=== PATIENT | female | born 1995 | race African-American/Black ===

== ENCOUNTER 2017-02-24 10:11 | Emergency (ER) | payer OTHER ==
[~2017-02-24] VITALS: Ht 154.9 cm; Wt 45.4 kg
[2017-02-24 10:55] LABS: ABSOLUTE LYMPHOCYTES 2.1 thou/uL (0.8-5.3); MCHC 32.2 g/dL (28.0-37.0)
[2017-02-24 10:57] LABS: ABSOLUTE MONOCYTES 0.4 thou/uL (0.0-1.2); ABSOLUTE NEUTROPHILS 4.1 thou/uL (1.6-8.1); BASOPHILS 0.5 %; EOSINOPHILS 0.7 %; HEMATOCRIT 36.5 % (37.0-47.0); HEMOGLOBIN 11.7 gm/dL (12.0-15.0); LYMPHOCYTES 30.9 %; MCV 83.7 fL (80.0-100.0); NUCLEATED RBCS 0 /100WBC; POLYS 61.9 %; RBC 4.35 mil/uL (4.20-5.00); RDW-CV 14.1 % (10.5-14.5); WBC 6.7 thou/uL (4.0-11.0)
[2017-02-24 11:02] LABS: CALCIUM 8.9 mg/dL (8.5-10.1); CREATININE 0.7 mg/dL (0.6-1.3); POTASSIUM 3.8 mmol/L (3.5-5.1)
[2017-02-24 11:06] LABS: ALBUMIN 3.7 g/dL (3.4-5.0); TOTAL BILIRUBIN 0.3 mg/dL (<0.1-1.0); TOTAL PROTEIN 7.2 g/dL (6.4-8.2)
[2017-02-24 11:14] LABS: PLATELET COUNT* 172 thou/uL (150-400)
[2017-02-24 12:05] LABS: MPV 10.2 fl. (7.2-11.1)
[2017-02-24 12:39] LABS: URINE BILIRUBIN NEGATIVE (Negative); URINE BLOOD 3+ (Negative); URINE CLARITY CLEAR; URINE COLOR YELLOW; URINE GLUCOSE-RANDOM NEGATIVE (Negative); URINE KETONES TRACE (Negative); URINE LEUKOCYTES-REFLEX NEGATIVE (Negative); URINE NITRITE-REFLEX NEGATIVE (Negative); URINE PROTEIN NEGATIVE (Negative); URINE UROBILINOGEN 0.2 E.U./dl (0.2-1.0)
[2017-02-24 12:50] LABS: BACTERIA-REFLEX 1-9 Few /HPF (None Seen); CASTS None Seen /LPF (None Seen); CRYSTALS None Seen /LPF (None Seen); MUCUS >6 Heavy strn/LPF (None Seen); SQUAMOUS 4-10 Moderate /LPF (0-3); URINE WBC-REFLEX 0-5 Rare /HPF (0-5)
[2017-02-24] MEDS ORDERED: IBUPROFEN 800800 M1 PO (13:08)
[2017-02-24 13:19] VITALS: BP 110/62
--- NOTE | 2017-02-24 16:37 | EKG ---
[place] [address] ELECTROCARDIOGRAM REPORT Name: OLIVERIO ADAMS Room: [facility]#: [id number] Admission: 02/24/17 Attend Phys: Discharge: 02/24/17 Date of : [birth year] Report #: [id number] THIS REPORT FOR: //name// [facility] ED Test Date: 2017-02-24 Test Time: 10:47:44 Pat Name: OLIVERIO ADAMS Department: Room: Gender: F [employer]: Lu BOWERS : 1995 Requested By: Ness Hicks Order Number: [id number] MD: Murray Rodriguez Measurements Intervals [place] Rate: 96 P: 66 NV: 157 QRS: 51 QRSD: 79 T: 26 QT: 350 QTc: 443 Interpretive Statements Sinus rhythm Possible left atrial enlargement Baseline wander in lead(s) V6 No previous ECG available for comparison Electronically Signed On 02-24-2017 16:37:09 [employer] by Murray Rodriguez [email or web address] <ELECTRONICALLY SIGNED> By: Murray Rodriguez MD, [facility] 02/24/17 1637 [id number] Murray Rodriguez MD, FACC /EPI
== END 2017-02-24 13:19 | disposition home or self-care (01) ==
LOC: M.ERS 10:11
PROVIDERS: Nurse Practitioner Family
DX: R10.9 Unspecified abdominal pain (principal); R55 Syncope and collapse